=== PATIENT | female | born 1940 | race Caucasian/White ===

== ENCOUNTER 2021-09-20 00:51 | Observation (INO) | payer MEDICARE, SELFPAY ==
--- NOTE | 2021-09-20 02:28 | HP.PCM.HOS_ITS ---
HPI - General General Date of Admission: 09/20/21 Date of Service: 09/20/21 Chief Complaint: N/V/D HPI Narrative The patient is an 81 y/o F w/ PMHx: PAF on amiodarone/eliquis, GERD, HTN, HLD, Diabetes mellitus type II, Anxiety and Depression, COPD, recent [facility] evaluation 09/08/21 for viral pharyngitis and 09/16/21 tachycardia in addition to telehealth evaluation 09/19/21 with lab work per PCP and then secondary to elevated LA levels recommended ED evaluation with ongoing loose stools over the last 2-3 days, decreased oral intake, nausea without emesis, ongoing treatment of recently 09/14/21 UTI with keflex with no recent fevers or worsened urinary type symptoms with OSH 09/19/21 telehealth PCP evaluation with LA 2.4, CBC with WC 9, hemoglobin 12.9, platelet 311 with ANC 6.6, lipase 50, CMP with glucose 153, BUN/creat 25/0.98 otherwise unremarkable with follow-up OSH ED [facility] evaluation with repeat labs and imaging including 8:56 PM lactic acid 2.6, CT abdomen and pelvis with contrast with mildly dilated common bile duct and intrahepatic and extrahepatic bile ducts when compared to prior with no obvious source of obstruction, diverticulosis without any evidence of diverticulitis, urinalysis with evidence of dehydration with elevated specific remedy 1.025, negative nitrite, negative leukocytes esterase with no obvious evidence of UTI, will repeat CBC later in the evening with WC 8.6, 13.3, platelet 346 with ANC 6.1, CMP with glucose 164, BUN/creat 24/0.95 otherwise hepatic profile unremarkable. Of note from discussion with OSH ED UCx from outside facility with noted mixed growth 09/14/21, normal urogenital yovanny. Allergies: Sulfa drug, Macrobid with hives reported, Novocain with dyspnea, Dilaudid with unclear reaction, Demerol with hives reported, Darvocet with nausea reported as well as hives, pramipexole with unclear reaction. Home medications: Triamcinolone 0.025% topical cream apply to affected area twice daily as needed Omeprazole 20 mg oral delayed release capsule twice daily AC Metformin 500 mg p.o. twice daily Lisinopril 2.5 mg p.o. daily Hydrochlorothiazide 25 mg 1 tablet p.o. daily Lasix 20 mg p.o. daily as needed swelling Famotidine 40 mg p.o. twice daily Amiodarone 200 mg p.o. daily Eliquis 5 mg p.o. twice daily Keflex 500 mg p.o. every 8 hours [facility] Medical History (Updated 09/20/21 @ 03:13 by Bria Koch) Anxiety and depression COPD (chronic obstructive pulmonary disease) Diabetes mellitus, type 2 Gastroparesis GERD (gastroesophageal reflux disease) HLD (hyperlipidemia) HTN (hypertension) Non-smoker PAF (paroxysmal atrial fibrillation) Home Medications amiodarone 200 mg tablet 200 mg PO DAILY 09/20/21 [History Last Taken 09/19/21 08:00] apixaban 5 mg tablet (Eliquis) 5 mg PO BID 09/20/21 [History Last Taken Unknown] famotidine 40 mg tablet 40 mg PO BID 09/20/21 [History Last Taken Unknown] furosemide 20 mg tablet (Lasix) 20 mg PO DAILY PRN Edema 09/20/21 [History Last Taken Unknown] hydrochlorothiazide 25 mg tablet 25 mg PO DAILY 09/20/21 [History Last Taken Unknown] lisinopril 2.5 mg tablet 5 mg PO DAILY 09/20/21 [History Last Taken Unknown] metformin 500 mg tablet 500 mg PO BID 09/20/21 [History Last Taken Unknown] omeprazole 20 mg tablet,delayed release 20 mg PO BID 09/20/21 [History Last Taken Unknown] Allergy/AdvReac Type Severity Reaction Status Date / Time acetaminophen Allergy Hives Verified 04/04/14 08:39 [From Darvocet-N] nitrofurantoin Allergy Hives Verified 04/04/14 08:39 [From Macrobid] nitrofurantoin Allergy Hives Verified 04/04/14 08:39 macrocrystalline [From Macrobid] procaine HCl [From Novocain] Allergy Shortness Verified 04/04/14 08:39 of breath propoxyphene napsylate Allergy Hives Verified 04/04/14 08:39 [From Darvocet-N] Family History (Updated 09/19/21 @ 22:[address] Ange Cordero MD) Mother Diabetes Hypertension Heart disease Father Hypertension Heart disease Surgical History (Updated 09/20/21 @ 03:[address] Ange Cordero MD) S/P exploratory laparotomy S/P lumpectomy, left breast Social History (Updated 09/19/21 @ 22:[address] Ange Cordero MD) household members: spouse current occupational status: retired Smoking Status: Never smoker alcohol intake: never substance use type: does not use ROS ROS Narrative Admission Review of Systems: CONSTITUTIONAL: No weight loss, fever, chills, + weakness or fatigue. HEENT: Eyes: No visual loss, blurred vision, double vision or yellow sclerae. Ears, Nose, Throat: No hearing loss, sneezing, congestion, runny nose or sore throat. SKIN: No rash or itching, lesions, wounds. CARDIOVASCULAR: No chest pain, chest pressure or chest discomfort, palpitations, edema, orthopnea, syncopal events. RESPIRATORY: No shortness of breath, cough or sputum, wheezing, hemoptysis. GASTROINTESTINAL: + anorexia, nausea, vomiting, diarrhea, abdominal pain, No melena, BRBPR. GENITOURINARY: + dysuria, No frequency, urgency or retention. NEUROLOGICAL: No headache, dizziness, syncope, paralysis, ataxia, numbness or tingling in the extremities, focal weakness, change in bowel or bladder control, seizure. MUSCULOSKELETAL: No muscle, back pain, joint pain or stiffness. HEMATOLOGIC: No anemia, bleeding or bruising. LYMPHATICS: No enlarged nodes. No history of splenectomy. PSYCHIATRIC: + history of depression or anxiety. ENDOCRINOLOGIC: No reports of sweating, cold or heat intolerance. No polyuria or polydipsia. ALLERGIES: No history of asthma, hives, eczema or rhinitis. Physical Exam Narrative Physical Examination: General: Awake, alert, oriented x 3 and cooperative, laying in MedSurg bed, fatigued otherwise no acute distress evident. Skin: Normal color, normal turgor, no icterus, no cyanosis. HEENT: AT/NC, EOMI, PERRLA, mildly dry MM, no carotid bruits or JVD noted. Lungs: Mild diminished, greater bases, appropriate effort, no rales, ronchi or wheezing. Heart: Regular rate and rhythm; no gallop, rub audible. Abdomen: Soft, mild discomfort to the left lower quadrant with no rebound or guarding, mildly distended, tympanitic, mildly hyperactive bowel sounds, no obvious HSM. Extremities: No cyanosis, clubbing, or edema. Neurological: Patient awake, alert, oriented as noted, cognitive function intact; pupils equally reactive to light and accommodation, cranial nerves II-X II grossly normal, moving all 4 extremities, no focal deficits, strength moderately globally decreased secondary to acute presentation. Psychiatric: Affect appears fatigued otherwise normal, no acute evidence of depressive or anxiety feelings. Results Lab / Micro Data Result Diagrams: 09/20/21 03:00 09/20/21 03:00 Assessment & Plan Assessment/Plan (1) Gastroenteritis: PLAN: Plan The patient is an 81 y/o F w/ PMHx: PAF on amiodarone/eliquis, GERD, HTN, HLD, Diabetes mellitus type II, Anxiety and Depression, COPD, recent [facility] evaluation 09/08/21 for viral pharyngitis and 09/16/21 tachycardia in addition to telehealth evaluation 09/19/21 with lab work per PCP and then secondary to elevated LA levels recommended ED evaluation with ongoing loose stools over the last 2-3 days, decreased oral intake, nausea without emesis, ongoing treatment of recently 09/14/21 UTI with keflex with no recent fevers or worsened urinary type symptoms with UCx per review without evidence UTI with ED evaluation with increasing LA despite IVFs and ongoing GI complaints. #1. N/V/D, Possible Gastroenteritis, lower suspicion for UTI with lactic acidosis, dehydration: We will admit to medical surgical floor, continue aggressive hydration, will obtain c diff, stool cx if recurrent loose stools, outside facility urine culture recently reported as mixed growth consistent with normal urogenital yovanny, repeat urine culture from outside facility pending however urinalysis was not marked appearing, CBC with no marked WC elevation and only mild shift noted, primarily patient with poor oral intolerance and mildly elevated lactic acid, will trend lactic acid for facility protocol, will obtain procalcitonin level, maintain on fall precautions, therapies as well as case management consulted for discharge planning. Certainly also could be antibiotic therapy related which we discontinued given urine culture was not marked appearing. Patient does have mild left lower quadrant discomfort on evaluation, outside facility CT with no obvious evidence of diverticulitis but would c ontinue to closely monitor and low threshold to further image if concerns arise. #2. Diabetes mellitus type II with gastroparesis suspected: Hold oral home regimen, currently initiated on clears only but advance diet as tolerated once #1 is improving to ADA diet, accu checks w/ ISS. From records from outside facility noted plan for upcoming gastric emptying study 09/26/2021, following with Dr. An. If gastroparesis certainly is playing a role although patient is noted does have significant diarrhea could consider Reglan in addition. #3. PAF: We will continue patient home amiodarone, Eliquis home regimen. #4. Hypertension: Continue home regimen including lisinopril, temporarily hold hydrochlorothiazide given #1 with GI losses, add back once the sugar oral intake and labs in a.m. appropriate, PRN hydralazine. #5. Hyperlipidemia: Not on regimen, defer to outpatient. #6. Anxiety and depression: Not on any current regimen, previous regimen did include sertraline, encourage continued outpatient follow-up with therapies and radiation medications if necessary. #7. COPD: Per current list not on any routine inhalers, as needed albuterol, encourage head of bed and I-S. #8. GERD: We will maintain on famotidine. #9. DVT prophylaxis: SCDs, continue home Eliquis regimen. #10. CODE status: Patient HCPOA is her who is present and living will is currently in place. Discussed CODE status at length including difference between FULL code, DNR-CCA and DNR-CC status. Following discussions about the differences in these status, requested Full Code status. Advanced Care Planning Face to Face Time: 16 minutes. Charges/Coding Visit Charges Inpatient E&M: 36609 Init Hosp L3 Procedures Hospitalists Procedures: 53624 Advncd Care Plan 30 Min
[2021-09-20 02:30] VITALS: BP 147/77; PULSE 75; RESP 18; TEMP 36.7; O2SAT 95; BMI 25.3
[2021-09-20 03:36] LABS: Absolute Lymphocyte Count 1.43 X10^3/uL (0.83-4.51); Absolute Neutrophil Count 7.4 X10^3/uL (2.0-7.7); Basophil# 0.03 X10^3/uL; Basophil% 0.3 % (0-1); Eosinophil# 0.01 X10^3/uL; Eosinophils% 0.1 % (0-5); Hematocrit 38.1 % (37-47); Hemoglobin 12.2 g/dL (12.0-15.0); Lymphocyte # 1.43 X10^3/ul (0.83-4.51); Lymphocyte % 14.8 % (19-41); Mean Corpuscular Hgb 29.8 pg (27.0-32.0); Mean Corpuscular Volume 92.9 fL (81-99); Mean Platelet Vol. 9.2 fl (6.2-12.0); Monocyte% 7.3 % (0-10); NRBC Flagged by Analyzer 0 % (0-5); Neutrophil # 7.43 X10^3/uL (2.7-7.7); Neutrophil % 77.2 % (47-70); Platelet Count 311 K/mm3 (150-450); RBC Distribution Width CV 14.4 % (11.6-14.6); RBC Distribution Width SD 48.6 fl (35.1-43.9); White Blood Count 9.6 K/mm3 (4.4-11.0)
[2021-09-20] MEDS: 0.9% Saline Lock 10 ML Syringe IV ×3 (03:40→11:38)
[2021-09-20] MEDS: 0.9% Normal Saline 1,000 ML 125 ML IV ×2 (03:40→11:30)
[2021-09-20 03:58] LABS: Lactic Acid 2.5 mmol/L (0.4-1.9)
[2021-09-20 04:24] LABS: ALB/GLOB Ratio 0.8 RATIO (0.9-2.4); AST(SGOT) 18 U/L (15-37); Alanine Aminotransfer ALT/SGPT 17 U/L (13-56); Alkaline Phosphatase 86 U/L (45-117); Anion Gap 7 (5-15); BUN 15 mg/dL (7-18); BUN/Creat Ratio 20.8 RATIO (10-20); Calcium,Total 8.7 mg/dL (8.5-10.1); Chloride 107 mmol/L (98-107); Creatinine, Serum 0.72 mg/dL (0.55-1.02); EST Glomerular Filtration Rate 82 mL/min (>60); Est Glom Filt Rate - Afr Amer 100 mL/min (>60); Globulin 3.6 g/dL (2.2-4.2); Glucose 138 mg/dL (74-106); Potassium 3.9 mmol/L (3.5-5.1); Protein, Total 6.6 g/dL (6.4-8.2); Sodium Level 141 mmol/L (136-145)
[2021-09-20 04:27] LABS: Procalcitonin < 0.04 ng/mL (0.00-0.09)
[2021-09-20 06:56] LABS: Bedside Glucose 120 mg/dL (74-106)
[2021-09-20 07:21] LABS: Reflex Lactate? Y
--- NOTE | 2021-09-20 07:28 | MRI_ITS ---
STUDY: MR MRCP WITHOUT CONTRAST REASON FOR EXAM: Female, 81 years old. Dilated bile ducts TECHNIQUE: Standard MRCP technique was utilized. 3-D reconstructions were performed. COMPARISON: None. FINDINGS: Gall Bladder: Normal with no distention or demonstrated fixed intraluminal filling defect. Cystic duct: Normal with no demonstrated fixed filling defect. Intrahepatic ducts: Normal visualized intrahepatic ducts with no demonstrated fixed filling defect, dilation or stricture. Common hepatic duct: Normal with no demonstrated fixed filling defect, dilation or stricture. Common bile duct: Normal with no demonstrated fixed filling defect, dilation or stricture. Pancreatic duct: Normal with no demonstrated fixed filling defect, dilation or stricture. MRI/MRCP Abdomen without Contrast IMPRESSION: Normal MR Cholangiopancreatography (MRCP). Electronically Signed: Cali Craft MD at 10:20 EDT ,
[2021-09-20 08:30] VITALS: BP 148/72; PULSE 64; RESP 18; TEMP 36.7; O2SAT 96
[2021-09-20 08:34] LABS: Lactic Acid 1.3 mmol/L (0.4-1.9)
[2021-09-20] MEDS: Famotidine 20 MG Tablet 40 MG PO ×2 (08:42→22:23)
[2021-09-20] MEDS: Lisinopril 5 MG Tablet PO (08:42)
[2021-09-20] MEDS: hydroCHLOROthiazide 25 MG Tablet PO (08:42)
[2021-09-20] MEDS: Pantoprazole Sodium 20 MG Tablet PO ×2 (08:42→22:23)
[2021-09-20] MEDS: Amiodarone 200 MG Tablet PO (08:43)
[2021-09-20] MEDS: Ensure Clear 120 ML Liquid PO ×2 (08:43→16:09)
[2021-09-20] MEDS: Ondansetron 4 MG/2 ML Vial IV (09:04)
--- NOTE | 2021-09-20 09:08 | NURSING ---
C.o nausea since she drank the chicken broth. Zofran given then Pt assisted into WC and brought down to MRI at this time.
[2021-09-20 11:35] LABS: Bedside Glucose 156 mg/dL (74-106)
[2021-09-20] MEDS: proCHLORPERazine 10 MG/2 ML Vial 5 MG IV (11:38)
[2021-09-20] MEDS: Loperamide 2 MG Capsule PO (11:38)
[2021-09-20] MEDS: APIXABAN 5 MG TABLET PO ×2 (11:42→22:22)
[2021-09-20] MEDS: Insulin Lispro 100 UNIT/ML INSULN.PEN SC (11:47)
--- NOTE | 2021-09-20 13:50 | PCM.HOSP.N ---
Hospitalist Note Patient was admitted this morning with nausea and vomiting as well as some loose stool. She states her nausea vomiting is currently better and her loose stool has resolved. She had a CT done at the [facility] (formerly [facility]) that showed dilated intra and extrahepatic ducts and therefore we performed an MRCP today which was negative for any ductal dilation. The patient has followed with Dr. An as an outpatient and has an outpatient gastric emptying study performed as there is concern she has gastroparesis however the patient indicated to the dietitian that she does not want a follow-up with him. When I saw her she did not express any such concerns so I will have to clarify tomorrow and I can offer her follow-up. She did have a mildly elevated lactic acid outside facility at 2.5 however anion gap was normal and I suspect this may be a type B lactic acidosis related to her metformin use and her mild dehydration caused by her nausea and vomiting with loose stool. We will advance her diet slowly and continue IV fluids until oral intake is adequate. If she continues to do well we will plan on discharging her home tomorrow with outpatient follow-up either with Dr. An or Dr. Montero if she so desires.
[2021-09-20] MEDS: Dicyclomine 10 MG Capsule PO ×2 (14:12→18:16)
[2021-09-20 16:11] VITALS: BP 138/75; PULSE 60; RESP 18; TEMP 36.6; O2SAT 95
--- NOTE | 2021-09-20 16:35 | NURSING ---
Pt had full liquid diet for lunch and has tolerated thus far. Pt denies nausea and states she feels hungry. Pt is not sure how many Bowel movements she has had today. I cant remember. Her is in the room and has been in the room visiting almost all day, did not comment. This nurse has assisted her to the bathroom at least 3 times.
[2021-09-20 17:01] LABS: Bedside Glucose 156 mg/dL (74-106)
[2021-09-20 22:00] VITALS: BP 104/71; PULSE 54; RESP 15; TEMP 36.4; O2SAT 95
[2021-09-21 01:06] LABS: Bedside Glucose 104 mg/dL (74-106)
[2021-09-21 04:00] VITALS: BP 101/63; PULSE 56; RESP 18; TEMP 36.6; O2SAT 96
[2021-09-21] MEDS: 0.9% Normal Saline 1,000 ML 50 ML IV (05:50)
[2021-09-21 07:29] VITALS: O2SAT 95
--- NOTE | 2021-09-21 09:02 | NURSING ---
Pt is sipping her coffee and hungry. No diarrhea since Saturday afternoon 09/20
[2021-09-21 09:04] VITALS: BP 158/73; PULSE 60; RESP 18; TEMP 37.1; O2SAT 94
[2021-09-21] MEDS: Famotidine 20 MG Tablet 40 MG PO (09:08)
[2021-09-21] MEDS: Ensure Clear 120 ML Liquid PO (09:08)
[2021-09-21] MEDS: Lisinopril 5 MG Tablet PO (09:09)
[2021-09-21] MEDS: APIXABAN 5 MG TABLET PO (09:09)
[2021-09-21] MEDS: Pantoprazole Sodium 20 MG Tablet PO (09:10)
[2021-09-21] MEDS: Dicyclomine 10 MG Capsule PO (09:11)
[2021-09-21] MEDS: Amiodarone 200 MG Tablet PO (09:11)
[2021-09-21] MEDS: hydroCHLOROthiazide 25 MG Tablet PO (09:11)
--- NOTE | 2021-09-21 11:05 | DS.PCM_ITS ---
Providers Date of Admission: 09/20/21 Date of Discharge: 09/21/21 Primary Care Physician: Dr. Kyle Redmond, DO Reason For Visit: ? GASTROENTERITIS Diagnosis Discharge Diagnosis (1) Gastroenteritis: Status: Acute Code(s): K52.9 - Noninfective gastroenteritis and colitis, unspecified Medications at Discharge Home Medications amiodarone 200 mg tablet 200 mg PO DAILY 09/20/21 apixaban 5 mg tablet (Eliquis) 5 mg PO BID 09/20/21 famotidine 40 mg tablet 40 mg PO BID 09/20/21 furosemide 20 mg tablet (Lasix) 20 mg PO DAILY PRN Edema 09/20/21 hydrochlorothiazide 25 mg tablet 25 mg PO DAILY 09/20/21 lisinopril 2.5 mg tablet 5 mg PO DAILY 09/20/21 metformin 500 mg tablet 500 mg PO BID 09/20/21 omeprazole 20 mg tablet,delayed release 20 mg PO BID 09/20/21 Hospital Course Operations None Procedures - (MRCP) Summary of Care Provided Minutes Spent on Discharge: 26 Hospital Course: Mrs. Delacruz is an 81-year-old white female who presented to the emergency department at an outside facility on 09/20/2021 for nausea, vomiting, and diarrhea. The patient evidently had some lab work done by her primary care physician and had an elevated lactate level at 2.4 with a repeat in the emergency department at 2.6. With her initial lactate being elevated the primary care physician recommended evaluation in the emergency department. With her nausea and vomiting and diarrhea the patient did appear slightly dehydrated upon presentation and was on metformin. Her anion gap was normal and her bicarb was normal so I suspect this is a type II lactic acidosis related to her ongoing metformin use with dehydration. Upon presentation her vital signs were overall unremarkable. Her CBC was overall unremarkable. Her lipase was normal at 50. Her CMP was overall unremarkable. CT of her abdomen pelvis with contrast was performed and showed a mildly dilated common bile duct and intrahepatic and extrahepatic bile ducts when compared to previous studies with no source of obvious obstruction, diverticulosis without diverticulitis. A urinalysis was performed which showed some mild dehydration but no signs of acute urinary tract infection and she had a recent urine culture at an outside facility which showed mixed growth of normal urogenital yovanny. She was transferred to our facility for further care. She evidently had seen Dr. An as an outpatient and a work-up for gastroparesis was underway with what appears to be a gastric emptying study ordered for 09/26/2021. Given her biliary duct dilation and MRCP was performed and found to be normal without any signs of obstruction or biliary duct dilation. After further discussion with the patient she is not interested in seeing Dr. An anymore and would like a referral for new inventory control manager. I recommended Dr. Montero and she indicated she had heard of him previously and was interested in seeing him. We made a referral at discharge. The patient's nausea vomiting diarrhea had resolved fairly quickly and she was able to eat a normal diet and was anxious to go home on the morning of 09/21/2021. No medication changes were made at discharge however I do recommend that if she does get dehydrated the future may be to hold her metformin for a bit as I suspect this was the cause of her lactic acidosis as noted above. She was able to be discharged home in stable condition on 09/21/2021. She is to follow-up with her primary care physician in 1 week and we gave her a referral to follow-up with Dr. Montero within the next 2 weeks. I encouraged her to call for an appointment within the next 24 to 48 hours to see him as soon as possible. Discharge diagnoses: Nausea/vomiting/diarrhea-resolved Suspected gastroparesis DM-2 PAF Hypertension Hyperlipidemia COPD GERD Anxiety Depression Physical Exam Narrative Nausea vomiting and diarrhea have resolved. Patient states she feels well and is anxious to go home. Const alert and oriented x3 Constitutional Narrative: Elderly white female sitting up on the edge of the bed, at bedside, patient appears very comfortable nontoxic, anxious to go home General Appearance: cooperative, comfortable, well kempt and well developed Orientation / Consciousness: awake Exam Limitations: no limitations HEENT normocephalic, head/scalp atraumatic, hearing grossly normal bilaterally and moist oral mucous membranes HEENT Narrative: Mallampati 2, no thrush Resp normal respiratory effort, no retractions, no use of accessory muscles and clear to auscultation bilaterally Auscultation: Negative for crackles, rales, rhonchi or wheezes Cardio regular rate, regular rhythm, S1 normal heart sound, S2 normal heart sound, no murmurs, no rub, no gallops, no clicks and no JVD GI normal to inspection, nondistended, normoactive bowel sounds, soft to palpation, non-tender and non-distended; Negative for hepatosplenomegaly Extremity no clubbing, cyanosis or edema Extremity Narrative: 2+ pedal pulses Skin no rashes or lesions noted, no wounds, skin turgor normal and no jaundice Neuro oriented x3, CN's II-XII intact bilaterally, moves all extremities, no focal motor deficits and No no sensory deficits noted Sensorium / Orientation: awake and alert Speech: speech normal Psych affect normal Weight / BMI Weight Weight: 64.5 kg Body Mass Index (BMI) 25.3 ABG / Lab / Microbiology Data Result Diagrams: 09/20/21 03:00 09/20/21 03:00 Laboratory: Laboratory Results - last 24 hr 09/20/21 11:28: POC Glucose 156 H 09/20/21 16:08: POC Glucose 156 H 09/20/21 22:29: POC Glucose 104 Microbiology: Microbiology 09/20/21 03:00 Stool Enteric Bacteriology - Final 09/20/21 03:00 Stool C. difficile DNA Amplification - Final D/C Instructions Discharge Diet: Low fat / Low cholesterol and 1800 Calorie Control Diet Discharge Activity: Return to Normal Activity Meaningful Use Info Meaningful Use Diagnoses (Choose all that apply): None applicable Discharge Plan Admission Admit Date/Time: 09/20/21 00:51 Primary Reason for Your Visit: Nausea/vomiting/diarrhea Attending Provider: Radha Cramer Primary Care Provider: Kyle Redmond Consulting Providers: Ange Cordero Discharge Orders/Prescriptions Prescriptions: No Action metformin 500 mg Tablet 500 mg PO BID famotidine 40 mg Tablet 40 mg PO BID hydrochlorothiazide 25 mg Tablet 25 mg PO DAILY furosemide [Lasix] 20 mg Tablet 20 mg PO DAILY PRN (Reason: Edema) lisinopril 2.5 mg Tablet 5 mg PO DAILY omeprazole 20 mg Tablet,Delayed Release (Dr/Ec) 20 mg PO BID Eliquis 5 mg Tablet 5 mg PO BID amiodarone 200 mg Tablet 200 mg PO DAILY Referrals / Follow Up: Sky Montero DO [STAFF PHYSICIAN] - Within 2 Weeks (for possible gastroparesis) Kyle Redmond DO [Primary Care Provider] - In 1 Week Disposition Disposition (needs filled in before D/C Order can be placed): Home, Self Care Charges/Coding Visit Charges Inpatient E&M: 57762 Disch Hosp
--- NOTE | 2021-09-21 12:42 | CASEMGMT ---
Pt left prior to being able to sign peterson form. RN CM did not get to complete assessment.
== END 2021-09-21 12:00 | disposition home or self-care (01) ==
PROVIDERS: Admitting Provider Family Medicine; PCP Preventive Medicine Occupational Medicine; Visit Provider Internal Medicine
DX: K52.9 Noninfective gastroenteritis and colitis, unspecified (principal); J44.9 Chronic obstructive pulmonary disease, unspecified; E11.43 Type 2 diabetes mellitus with diabetic autonomic (poly)neuropathy; I48.0 Paroxysmal atrial fibrillation; E86.0 Dehydration; I10 Essential (primary) hypertension; Z79.01 Long term (current) use of anticoagulants; E78.5 Hyperlipidemia, unspecified; K21.9 Gastro-esophageal reflux disease without esophagitis; Z79.899 Other long term (current) drug therapy; Z79.84 Long term (current) use of oral hypoglycemic drugs
CPT/HCPCS: 36415; 74181; 80053; 82962; 83605; 84145; 85025; 87493; 87506; 87635; 96361; 96374; 96375; 97802; 99218; 99251; J7030; A4216; G0378; G0379; G0463; J2405; U0003; U0005

== ENCOUNTER 2021-10-04 13:07 | Outpatient (CLI) | payer MEDICARE, SELFPAY ==
[2021-10-04 13:41] LABS: Erythrocyte Sedimentation Rate 33 mm/hr (0-30)
[2021-10-04 13:42] LABS: Absolute Lymphocyte Count 1.68 X10^3/uL (0.83-4.51); Absolute Neutrophil Count 6.2 X10^3/uL (2.0-7.7); Basophil# 0.06 X10^3/uL; Basophil% 0.7 % (0-1); Eosinophil# 0.02 X10^3/uL; Eosinophils% 0.2 % (0-5); Hemoglobin 13.5 g/dL (12.0-15.0); Lymphocyte # 1.68 X10^3/ul (0.83-4.51); Lymphocyte % 19.7 % (19-41); Mean Corp Hgb Conc 32.1 g/dL (32-36); Mean Corpuscular Hgb 29.3 pg (27.0-32.0); Mean Corpuscular Volume 91.3 fL (81-99); Mean Platelet Vol. 9.4 fl (6.2-12.0); Monocyte# 0.57 X10^3/uL; Monocyte% 6.7 % (0-10); NRBC Flagged by Analyzer 0 % (0-5); Neutrophil # 6.18 X10^3/uL (2.7-7.7); Neutrophil % 72.5 % (47-70); Platelet Count 279 K/mm3 (150-450); RBC Distribution Width CV 14.6 % (11.6-14.6); RBC Distribution Width SD 48.4 fl (35.1-43.9); White Blood Count 8.5 K/mm3 (4.4-11.0)
[2021-10-04 14:07] LABS: Vitamin B12 356 pg/mL (211-911)
[2021-10-04 14:11] LABS: CRP 5.17 mg/L (0.0-3.0); Thyroid Stim Hormone (TSH) 1.13 uIU/mL (0.358-3.74)
[2021-10-06 17:07] LABS: Endomysial Antibody IgA Negative (Negative); Immunoglobulin A 426 mg/dL (64-422)
[2021-10-06 20:20] LABS: Cancer Antigen 125 16.1 U/mL (0.0-38.1); t-Transglutaminase IgA <2 U/mL (0-3)
== END 2021-10-04 23:59 | disposition home or self-care (01) ==
LOC: LAB 13:10
PROVIDERS: PCP Student in an Organized Health Care Education/Training Program; Visit Provider Internal Medicine Gastroenterology
DX: R10.9 Unspecified abdominal pain (principal); R19.7 Diarrhea, unspecified; K59.00 Constipation, unspecified
CPT/HCPCS: 36415; 82607; 82784; 83516; 84443; 85025; 85652; 86140; 86255; 86304

== ENCOUNTER → 2021-10-05 | Outpatient (CLI) | payer MEDICARE, SELFPAY ==
[2021-10-10 14:21] LABS: Calprotectin, Stool 188 ug/g (0-120)
[2021-10-12 12:56] LABS: Pancreatic Elastase, Fecal 143 (>200)
== END | disposition home or self-care (01) ==
LOC: LABSPEC 09:13
PROVIDERS: PCP Student in an Organized Health Care Education/Training Program; Referring Provider Internal Medicine Gastroenterology; Visit Provider Internal Medicine Gastroenterology
DX: R10.9 Unspecified abdominal pain (principal); R19.7 Diarrhea, unspecified; K59.00 Constipation, unspecified; K58.9 Irritable bowel syndrome, unspecified
CPT/HCPCS: 82653; 83630; 83993; 87177; 87209; 87493; 87506